=== PATIENT | male | born 1970 | race Caucasian/White ===

== ENCOUNTER 2017-03-06 11:45 | Inpatient (IN) | payer MEDICAID ==
[~2017-03-06] VITALS: Ht 170.2 cm; Wt 130.8 kg
[2017-03-06 12:34] LABS: BASOPHIL % 0.3 % (0-2); PLATELET COUNT 279 x10^3mcL (130-400)
[2017-03-06 12:35] LABS: RED CELL DISTRIBUTION WIDTH 14.8 % (11.5-14.5)
[2017-03-06 12:54] LABS: CALCIUM 8.4 mg/dL (8.5-10.1); CARBON DIOXIDE 28.4 mmol/L (21-32); CHLORIDE SERUM 102 mmol/L (98-107); CREATININE SERUM 1.1 mg/dL (0.7-1.3); GFR1 > 60 mL/min; GLUCOSE SERUM 100 mg/dL (74-106); POTASSIUM SERUM 3.7 mmol/L (3.5-5.1); SODIUM SERUM 135 mmol/L (136-145)
[2017-03-06 12:59] LABS: ALKALINE PHOSPHATASE 48 U/L (46-116); ALT/SGPT 25 U/L (16-63); AST/SGOT 14 U/L (15-37); BILIRUBIN TOTAL 0.6 mg/dL (0.20-1.00); CHOLESTEROL 148 mg/dL (<200); TOTAL PROTEIN, SERUM 8.2 g/dL (6.4-8.2)
[2017-03-06 13:02] LABS: C REACTIVE PROTEIN 17.7 mg/dL (<=0.9)
[2017-03-06] MEDS ORDERED: ADVIL200 MG PO (13:37)
[2017-03-06] MEDS ORDERED: NAPROXEN375 MG PO (13:37)
[2017-03-06] MEDS ORDERED: APAP500 MG PO (13:38)
[2017-03-06 15:21] LABS: T3 TOTAL 1.03 ng/mL
[2017-03-06 15:27] LABS: FREE T4 1.07 ng/dL (0.76-1.46); T4(THYROXINE) 8.2 ug/dL (4.7-13.3)
[2017-03-06 15:32] VITALS: BP 85/52
[2017-03-06 15:47] LABS: MAGNESIUM 2.1 mg/dL (1.8-2.4); PHOSPHOROUS 2.1 mg/dL (2.5-4.9)
[2017-03-06 15:50] VITALS: Ht 170.2 cm; Wt 130.8 kg
[2017-03-06 17:50] VITALS: BP 91/56
[2017-03-06 21:39] VITALS: BP 100/65
[2017-03-07 01:30] LABS: UA SPECIFIC GRAVITY 1.015 (1.005-1.035); microscopic required? YES; urine erythrocyte NEGATIVE (NEGATIVE)
[2017-03-07 01:42] LABS: AMPHETAMINE QUAL UR NONE DETECTED (NEG <=1000)
[2017-03-07 05:06] VITALS: BP 107/66
[2017-03-07 07:16] LABS: BASOPHIL % 0.2 % (0-2); PLATELET COUNT 267 x10^3mcL (130-400)
[2017-03-07 07:18] LABS: RED CELL DISTRIBUTION WIDTH 14.6 % (11.5-14.5)
[2017-03-07 07:38] LABS: CALCIUM 7.9 mg/dL (8.5-10.1); CARBON DIOXIDE 24.6 mmol/L (21-32); CHLORIDE SERUM 104 mmol/L (98-107); GFR1 > 60 mL/min; GLUCOSE SERUM 104 mg/dL (74-106); MAGNESIUM 2.3 mg/dL (1.8-2.4); PHOSPHOROUS 3.6 mg/dL (2.5-4.9); POTASSIUM SERUM 4.1 mmol/L (3.5-5.1); SODIUM SERUM 134 mmol/L (136-145)
[2017-03-07 09:50] VITALS: BP 111/72
[2017-03-07 13:30] VITALS: BP 116/65
[2017-03-07 17:40] VITALS: BP 117/69
[2017-03-07 21:12] VITALS: BP 118/72
[2017-03-08 06:24] VITALS: BP 137/71
[2017-03-08 06:25] LABS: CALCIUM 8.5 mg/dL (8.5-10.1); CARBON DIOXIDE 26.4 mmol/L (21-32); CHLORIDE SERUM 105 mmol/L (98-107); CREATININE SERUM 0.9 mg/dL (0.7-1.3); GFR1 > 60 mL/min; GLUCOSE SERUM 91 mg/dL (74-106); POTASSIUM SERUM 4.1 mmol/L (3.5-5.1); SODIUM SERUM 136 mmol/L (136-145)
[2017-03-08 09:59] VITALS: BP 136/83
[2017-03-08 14:30] VITALS: BP 159/89
[2017-03-08 17:29] VITALS: BP 155/99
[2017-03-08 21:55] VITALS: BP 152/83
[2017-03-09] VITALS (8 sets, daily range): BP systolic 132–182; BP diastolic 84–112
[2017-03-09 05:44] LABS: CALCIUM 8.2 mg/dL (8.5-10.1); CARBON DIOXIDE 24.1 mmol/L (21-32); CHLORIDE SERUM 106 mmol/L (98-107); CREATININE SERUM 0.9 mg/dL (0.7-1.3); GFR1 > 60 mL/min; GLUCOSE SERUM 106 mg/dL (74-106); POTASSIUM SERUM 3.8 mmol/L (3.5-5.1); SODIUM SERUM 143 mmol/L (136-145)
[2017-03-09 06:20] LABS: BASOPHIL % 0.3 % (0-2); PLATELET COUNT 311 x10^3mcL (130-400)
[2017-03-09 06:32] LABS: RED CELL DISTRIBUTION WIDTH 14.6 % (11.5-14.5)
[2017-03-10 05:53] VITALS: BP 155/98
[2017-03-10 06:40] LABS: BASOPHIL % 0.3 % (0-2); PLATELET COUNT 370 x10^3mcL (130-400)
[2017-03-10 06:48] LABS: RED CELL DISTRIBUTION WIDTH 14.6 % (11.5-14.5)
[2017-03-10 07:43] VITALS: BP 144/105
[2017-03-10 08:15] LABS: CALCIUM 8.4 mg/dL (8.5-10.1); CARBON DIOXIDE 25.3 mmol/L (21-32); CHLORIDE SERUM 105 mmol/L (98-107); CREATININE SERUM 0.9 mg/dL (0.7-1.3); GFR1 > 60 mL/min; GLUCOSE SERUM 129 mg/dL (74-106); POTASSIUM SERUM 4.3 mmol/L (3.5-5.1); SODIUM SERUM 142 mmol/L (136-145)
[2017-03-10 09:25] VITALS: BP 133/89
[2017-03-10 12:53] VITALS: BP 147/94
[2017-03-10 17:00] VITALS: BP 131/87
[2017-03-10 21:05] VITALS: BP 117/70
[2017-03-11 04:26] LABS: BASOPHIL % 0.2 % (0-2); PLATELET COUNT 384 x10^3mcL (130-400)
[2017-03-11 04:32] LABS: RED CELL DISTRIBUTION WIDTH 14.7 % (11.5-14.5)
[2017-03-11 04:59] LABS: CALCIUM 8.1 mg/dL (8.5-10.1); CARBON DIOXIDE 26.4 mmol/L (21-32); CHLORIDE SERUM 107 mmol/L (98-107); CREATININE SERUM 0.9 mg/dL (0.7-1.3); GFR1 > 60 mL/min; GLUCOSE SERUM 104 mg/dL (74-106); POTASSIUM SERUM 4.3 mmol/L (3.5-5.1); SODIUM SERUM 142 mmol/L (136-145)
[2017-03-11 05:32] VITALS: BP 144/93
[2017-03-11 07:43] VITALS: BP 145/100
[2017-03-11] MEDS ORDERED: METOPROLOL TART25 M1 PO (12:10)
[2017-03-11] MEDS ORDERED: LIPI10 PO (12:10)
[2017-03-11] MEDS ORDERED: ZES20 PO (12:11)
[2017-03-11] MEDS ORDERED: NOR10T PO (12:13)
[2017-03-11] MEDS ORDERED: INDOMETHACIN50 MG PO (12:19)
[2017-03-11 13:52] VITALS: BP 155/107
[2017-03-11] MEDS ORDERED: COU10 PO (14:02)
[2017-03-11 16:32] VITALS: BP 132/79
[2017-03-11 21:37] VITALS: BP 139/83
[2017-03-12 05:51] VITALS: BP 167/90
[2017-03-12 06:02] LABS: PLATELET COUNT 388 x10^3mcL (130-400)
[2017-03-12 06:30] LABS: CALCIUM 8.3 mg/dL (8.5-10.1); CARBON DIOXIDE 24.6 mmol/L (21-32); CHLORIDE SERUM 104 mmol/L (98-107); GFR1 > 60 mL/min; GLUCOSE SERUM 127 mg/dL (74-106); POTASSIUM SERUM 3.9 mmol/L (3.5-5.1); SODIUM SERUM 140 mmol/L (136-145)
[2017-03-12 06:37] LABS: BASOPHIL % 0 % (0-2)
[2017-03-12 10:20] VITALS: BP 161/110
[2017-03-12 14:51] VITALS: BP 169/89
[2017-03-12 17:14] VITALS: BP 140/91
[2017-03-12 21:35] VITALS: BP 158/96
[2017-03-13 06:26] VITALS: BP 135/93
[2017-03-13 07:01] LABS: CALCIUM 8.9 mg/dL (8.5-10.1); CARBON DIOXIDE 28.1 mmol/L (21-32); CHLORIDE SERUM 104 mmol/L (98-107); CREATININE SERUM 0.9 mg/dL (0.7-1.3); GFR1 > 60 mL/min; GLUCOSE SERUM 98 mg/dL (74-106); POTASSIUM SERUM 4.2 mmol/L (3.5-5.1); SODIUM SERUM 138 mmol/L (136-145)
[2017-03-13 07:17] LABS: BASOPHIL % 0.3 % (0-2); PLATELET COUNT 401 x10^3mcL (130-400); RED CELL DISTRIBUTION WIDTH 14.7 % (11.5-14.5)
[2017-03-13 09:54] VITALS: BP 135/93
[2017-03-13 10:00] VITALS: BP 141/91
[2017-03-13] MEDS ORDERED: COU10 PO (10:38)
== END 2017-03-13 11:40 | disposition home or self-care (01) | DRG 197 ==
LOC: ED 11:45 → DU 13:50 → MU 03-12 00:07
PROVIDERS: Family Medicine; Specialist; ADMIT Student in an Organized Health Care Education/Training Program
DX: I82.621 Acute embolism and thrombosis of deep veins of right upper extremity (principal); N17.0 Acute kidney failure with tubular necrosis; E43 Unspecified severe protein-calorie malnutrition; I24.8 Other forms of acute ischemic heart disease; Z68.42 Body mass index [BMI] 45.0-49.9, adult; E87.1 Hypo-osmolality and hyponatremia; E83.39 Other disorders of phosphorus metabolism; F11.10 Opioid abuse, uncomplicated; R73.03 Prediabetes; M10.9 Gout, unspecified; M89.8X1 Other specified disorders of bone, shoulder; Z79.1 Long term (current) use of non-steroidal anti-inflammatories (NSAID); E44.0 Moderate protein-calorie malnutrition
CPT/HCPCS: 83880; 84439; G0480; J1644; J1885; J2270; J2405; J2920; J3490; J7030; J7040; J7050; Q0092; Q9967

== ENCOUNTER → 2017-04-13 | Outpatient (CLI) | payer MEDICAID ==
[~2017-04-13] MED LIST: ADVIL200 MG PO; APAP500 MG PO; COU10 PO; INDOMETHACIN50 MG PO; LIPI10 PO; METOPROLOL TART25 M1 PO; NAPROXEN375 MG PO; NOR10T PO; ZES20 PO
== END | disposition home or self-care (01) ==
LOC: RD 12:35
DX: M25.521 Pain in right elbow (principal)

== ENCOUNTER → 2017-05-21 | Outpatient (CLI) | payer MEDICAID | END | disposition home or self-care (01) | LOC: US 12:55 | PROC: B54MZZZ Ultrasonography of Right Upper Extremity Veins (ICD-10-PCS; principal; 2017-05-21) | PROC: BH4CZZZ Ultrasonography of Head and Neck (ICD-10-PCS; 2017-05-21) | DX: M25.521 Pain in right elbow (principal) ==